=== PATIENT | female | born 1955 | race Caucasian/White ===

== ENCOUNTER 2017-01-20 13:10 | Inpatient (IN) | payer MEDICARE ==
[~2017-01-20] VITALS: Ht 149.9 cm; Wt 140.6 kg
[2017-01-20 13:10] VITALS: BP 130/77
[2017-01-20] MEDS ORDERED: ZOLPIDEM 5MG TABLET PO PRN (14:00)
[2017-01-20] MEDS ORDERED: MAGNESIUM OXIDE 400 MG TABLET PO PRN (14:00)
[2017-01-20] MEDS ORDERED: POTASSIUM CHLORIDE 20 MEQ TAB.ER.PRT PO PRN (14:00)
[2017-01-20] MEDS ORDERED: SODIUM CHLORIDE 0.9% 1,000 ML IV SCH (14:00)
[2017-01-20] MEDS ORDERED: PLEASE ENTER ALLERGIES MC SCH ×2 (14:00)
[2017-01-20] MEDS ORDERED: PLEASE ENTER HEIGHT AND WEIGHT MC SCH (14:00)
[2017-01-20] MEDS ORDERED: HYDR25TA6 PO (15:08)
[2017-01-20] MEDS ORDERED: METH5TAB82 PO (15:08)
[2017-01-20] MEDS ORDERED: ERGO2000 PO (15:12)
[2017-01-20] MEDS ORDERED: METO100T3 PO (15:12)
[2017-01-20 16:00] VITALS: BP_SYST 129; BP_SYST 136; BP_SYST 169; BP_DIAS 78; BP_DIAS 82; BP_DIAS 93
[2017-01-20 16:41] LABS: BLOOD UREA NITROGEN 11 mg/dL (7-18)
[2017-01-20 16:47] LABS: IS PT STATUS REG ER OR PRE ER? NO
[2017-01-20 19:06] VITALS: BP 120/73
[2017-01-20] MEDS ORDERED: MAGNESIUM SULFATE PMX 2GM/50ML 50 ML IV ONE (21:00)
[2017-01-20] MEDS ORDERED: POTASSIUM CHLORIDE 20 MEQ TAB.ER.PRT PO ONE (21:00)
[2017-01-20] MEDS ORDERED: MAGNESIUM OXIDE 400 MG TABLET PO ONE (21:00)
[2017-01-20] MEDS: SODIUM CHLORIDE FLUSH 10ML SYR IVF SCH (22:40)
[2017-01-21 03:45] VITALS: BP 137/87
[2017-01-21 05:00] VITALS: BP 137/87
[2017-01-21 05:04] LABS: HEMATOCRIT 35.3 % (34.6-47.8); HEMOGLOBIN 11.9 g/dL (11.7-16.4); WHITE BLOOD COUNT 7.6 x10^3/uL (3.4-10)
[2017-01-21 05:13] LABS: BLOOD UREA NITROGEN 14 mg/dL (7-18)
[2017-01-21] MEDS: ACETAMINOPHEN 325 MG TABLET PO PRN ×2 (06:33→19:52)
[2017-01-21 06:58] VITALS: BP 145/82
[2017-01-21] MEDS ORDERED: CEFAZOLIN PMX 1GM/50ML 50 ML IVPB ONE (08:30)
[2017-01-21] MEDS ORDERED: MIDAZOLAM 1 MG/ML, 5ML ONE (08:46)
[2017-01-21] MEDS ORDERED: CEFAZOLIN PMX 1GM/50ML 50 ML ONE ×2 (08:47→09:22)
[2017-01-21] MEDS ORDERED: FENTANYL PF 100 MCG/2ML ONE (08:47)
[2017-01-21] MEDS ORDERED: LIDOCAINE 2%, 20ML ONE (08:47)
[2017-01-21] MEDS ORDERED: CEFAZOLIN 1,000 MG ONE (08:47)
[2017-01-21] MEDS: SODIUM CHLORIDE FLUSH 10ML SYR IVF SCH ×2 (09:00→19:59)
[2017-01-21] MEDS ORDERED: SUCCINYLCHOLINE 20 MG/ML, 10ML ONE (10:45)
[2017-01-21] MEDS ORDERED: PROPOFOL 10 MG/ML, 20ML ONE (10:45)
[2017-01-21] MEDS ORDERED: ONDANSETRON 2MG/ML, 2ML ONE (10:45)
[2017-01-21] MEDS ORDERED: ACETAMINOPHEN 325 MG TABLET PO PRN (12:30)
[2017-01-21] MEDS ORDERED: FENTANYL PF 100 MCG/2ML IV PRN (12:30)
[2017-01-21] MEDS ORDERED: LABETALOL 5MG/ML, 20ML IV PRN (12:30)
[2017-01-21] MEDS ORDERED: ONDANSETRON 2MG/ML, 2ML IVPush PRN (12:30)
[2017-01-21] MEDS ORDERED: hydrALAzine 20 MG/ML, 1ML IV PRN (12:30)
[2017-01-21] MEDS ORDERED: MIDAZOLAM 1 MG/ML, 2ML IV PRN (12:30)
[2017-01-21 15:02] VITALS: BP 122/80
[2017-01-21 18:31] VITALS: BP 136/81
[2017-01-21] MEDS: CEFAZOLIN PMX 1GM/50ML 50 ML IVPB SCH (19:56)
[2017-01-21] MEDS ORDERED: SODIUM CHLORIDE FLUSH 10ML SYR IVF SCH (21:00)
[2017-01-22 01:42] VITALS: BP 113/61
[2017-01-22] MEDS: ACETAMINOPHEN 325 MG TABLET PO PRN ×4 (02:02→19:46)
[2017-01-22] MEDS: CEFAZOLIN PMX 1GM/50ML 50 ML IVPB SCH ×2 (05:32→12:05)
[2017-01-22 07:01] VITALS: BP 114/72
[2017-01-22] MEDS ORDERED: METO100T3 PO (09:12)
[2017-01-22] MEDS ORDERED: HYDR-3240 PO (09:14)
[2017-01-22] MEDS: SODIUM CHLORIDE FLUSH 10ML SYR IVF SCH ×2 (12:14→19:46)
[2017-01-22] MEDS: METOPROLOL SUCCINATE 25 MG TAB.ER.24H PO SCH (12:14)
[2017-01-22 13:48] VITALS: BP 108/68
[2017-01-22] MEDS: HYDROCHLOROTHIAZIDE 25 MG TABLET PO SCH (16:30)
[2017-01-22 19:25] VITALS: BP 141/77
[2017-01-23] MEDS: HYDROcodone/APAP 5/325 TABLET PO PRN ×2 (01:00→14:28)
[2017-01-23 01:11] VITALS: BP 123/78
[2017-01-23] MEDS: METOPROLOL SUCCINATE 25 MG TAB.ER.24H PO SCH (05:04)
[2017-01-23 08:00] VITALS: BP 135/80
[2017-01-23] MEDS: SODIUM CHLORIDE FLUSH 10ML SYR IVF SCH ×2 (08:42→19:28)
[2017-01-23] MEDS: HYDROCHLOROTHIAZIDE 25 MG TABLET PO SCH (08:43)
[2017-01-23] MEDS: MAGNESIUM HYDROXIDE 8%, 30ML UDC PO PRN (09:45)
[2017-01-23 14:00] VITALS: BP 111/58
[2017-01-23 19:29] VITALS: BP 138/69
[2017-01-24 03:59] VITALS: BP 145/87
[2017-01-24 05:25] VITALS: BP 159/80
[2017-01-24] MEDS: MAGNESIUM HYDROXIDE 8%, 30ML UDC PO PRN (05:27)
[2017-01-24] MEDS: METOPROLOL SUCCINATE 25 MG TAB.ER.24H PO SCH (05:27)
[2017-01-24 10:02] VITALS: BP 102/56
[2017-01-24] MEDS: HYDROCHLOROTHIAZIDE 25 MG TABLET PO SCH (10:07)
[2017-01-24] MEDS: SODIUM CHLORIDE FLUSH 10ML SYR IVF SCH (10:07)
== END 2017-01-24 14:48 | disposition home or self-care (01) | DRG 242 ==
LOC: 5SO 13:10 → DCLOUNGE 01-24 14:35
PROVIDERS: ADMIT Internal Medicine Cardiovascular Disease; ATTEND Internal Medicine Cardiovascular Disease
PROC: 0JH606Z Insertion of Pacemaker, Dual Chamber into Chest Subcutaneous Tissue and Fascia, Open Approach (ICD-10-PCS; 2017-01-21)
PROC: 02H63JZ Insertion of Pacemaker Lead into Right Atrium, Percutaneous Approach (ICD-10-PCS; 2017-01-21)
PROC: 02HK3JZ Insertion of Pacemaker Lead into Right Ventricle, Percutaneous Approach (ICD-10-PCS; principal; 2017-01-21 09:45)
DX: I45.5 Other specified heart block (principal); I50.23 Acute on chronic systolic (congestive) heart failure; I46.9 Cardiac arrest, cause unspecified; Z68.44 Body mass index [BMI] 60.0-69.9, adult; I11.0 Hypertensive heart disease with heart failure; I50.9 Heart failure, unspecified; R55 Syncope and collapse; W18.30XA Fall on same level, unspecified, initial encounter; R09.02 Hypoxemia; S01.01XA Laceration without foreign body of scalp, initial encounter; E66.9 Obesity, unspecified; F17.210 Nicotine dependence, cigarettes, uncomplicated; Z82.49 Family history of ischemic heart disease and other diseases of the circulatory system; Z90.710 Acquired absence of both cervix and uterus; Y93.89 Activity, other specified; Y92.89 Other specified places as the place of occurrence of the external cause; Y99.8 Other external cause status
CPT/HCPCS: 33208; 36415; 71010; 80048; 83735; 83880; 84132; 84484; 85025; 85610; 93880; C1779; C1785; C1892; C8929; J0690; J2250; J2405; J2704; J3010; J3490; J0330; J3475; J7030